=== PATIENT | male | born 1950 | race Caucasian/White ===

== ENCOUNTER → 2018-07-09 | Outpatient (CLI) | payer OTHER, MEDICARE ==
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
== END | disposition home or self-care (01) ==
LOC: RADCTMAIN 10:22
PROVIDERS: ATTEND Orthopaedic Surgery
DX: S52.692A Other fracture of lower end of left ulna, initial encounter for closed fracture (principal)

== ENCOUNTER → 2018-07-20 | Outpatient (CLI) | payer OTHER, MEDICARE ==
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
== END | disposition home or self-care (01) ==
LOC: RADMRIMAIN 07:19
PROVIDERS: ATTEND Orthopaedic Surgery
DX: S52.612D Displaced fracture of left ulna styloid process, subsequent encounter for closed fracture with routine healing (principal); S52.552D Other extraarticular fracture of lower end of left radius, subsequent encounter for closed fracture with routine healing; S52.502D Unspecified fracture of the lower end of left radius, subsequent encounter for closed fracture with routine healing; S52.602D Unspecified fracture of lower end of left ulna, subsequent encounter for closed fracture with routine healing

== ENCOUNTER → 2018-07-22 | Outpatient (CLI) | payer OTHER, MEDICARE ==
[2018-07-22 15:25] LABS: Basophils # (A) 0.1 k/uL (0-0.2); Basophils % (A) 1 %; Eosinophils # (A) 0.1 k/uL (0-0.7); Eosinophils % (A) 1 %; HCT 38.2 % (39.0-53.0); HGB 12.6 gm/dL (13.0-17.5); Lymphocytes # (A) 1.1 k/uL (1.0-4.8); Lymphocytes % (A) 20 %; MCH 31.8 pg (25.0-35.0); MCHC 32.9 g/dL (31.0-37.0); MCV 96.6 fL (80.0-100.0); Mean Platelet Volume 6.6; Monocytes # (A) 0.3 k/uL (0-1.0); Monocytes % (A) 5 %; Neutrophils # (A) 3.9 k/uL (1.3-7.7); Neutrophils % (A) 73 %; Platelet Count 255 k/uL (150-450); RBC 3.96 m/uL (4.30-5.90); RDW 13.6 % (11.5-15.5); WBC 5.4 k/uL (3.8-10.6)
[2018-07-22 19:49] LABS: Albumin 3.3 g/dL (3.80-4.90); Anion Gap 6.6 mmol/L (4.00-12.00); Calcium 8.6 mg/dL (8.7-10.3); Carbon Dioxide 25.4 mmol/L (21.6-31.8); Phosphorus 2.8 mg/dL (2.4-5.1); Potassium 4.5 mmol/L (3.5-5.5); Uric Acid 7.7 mg/dL (3.7-8.7)
[2018-07-22 20:02] LABS: Iron Saturation 25.86 (15.00-50.00)
[2018-07-22 20:12] LABS: Vitamin D 25 Hydroxy 19.8 ng/mL (30.0-100.0)
== END | disposition home or self-care (01) ==
LOC: LABWHC1 13:32
PROVIDERS: ATTEND Internal Medicine Nephrology
DX: M10.9 Gout, unspecified (principal); D63.1 Anemia in chronic kidney disease; N18.3 Chronic kidney disease, stage 3 (moderate); E21.3 Hyperparathyroidism, unspecified; R80.9 Proteinuria, unspecified
CPT/HCPCS: 36415; 80048; 82040; 82306; 82728; 83540; 83550; 83735; 83970; 84100; 84550; 85025

== ENCOUNTER → 2018-07-22 | Outpatient (CLI) | payer OTHER, MEDICARE, BC | END | disposition home or self-care (01) | LOC: LABPAT 13:55 | PROVIDERS: ATTEND Anesthesiology | DX: Z01.818 Encounter for other preprocedural examination (principal) | CPT/HCPCS: 93005 ==

== ENCOUNTER 2018-07-24 10:15 | Day surgery (SDC) | payer OTHER, MEDICARE ==
[2018-07-15 10:53] VITALS: BMI 60.3
[~2018-07-24 10:15] MED LIST: DEXAMETHASONE SOD PHOSPHATE 10 MG/ML 1 ML VIAL IV ONE; HYDROmorphone 0.5 MG/0.5 ML SYRINGE IVP PRN; MIDAZOLAM (PF) 2 MG/2 ML VIAL IV PRN; ONDANSETRON 4 MG/2 ML VIAL IVP ONE; ceFAZolin 3 GM in SODIUM CHLORIDE 0.9% 100 ML IVPB ONE
[2018-07-24] MEDS: LACTATED RINGERS 1,000 ML IV SCH ×3 (10:50→11:20)
== END 2018-07-24 11:28 | disposition home or self-care (01) ==
LOC: OR 10:15
PROVIDERS: ATTEND Orthopaedic Surgery
DX: S52.502A Unspecified fracture of the lower end of left radius, initial encounter for closed fracture (principal); Z53.09 Procedure and treatment not carried out because of other contraindication

== ENCOUNTER 2024-12-04 02:09 | Inpatient (IN) | payer MEDICARE ==
[2024-12-04] MEDS ORDERED: VANCOMYCIN IV PER PHARMACY 1 EACH MISC MISCELLANE PRN (02:29)
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
[2024-12-04] MEDS: ACETAMINOPHEN TAB 500 MG TAB PO STA (02:43)
[2024-12-04] MEDS: HYDROmorphone 1 MG/ML 1 ML SYRINGE IVP STA (02:44)
[2024-12-04] MEDS: LACTATED RINGERS 1,000 ML IV ONE (02:47)
[2024-12-04] MEDS ORDERED: ONDANSETRON 4 MG/2 ML VIAL IVP PRN (02:58)
[2024-12-04] MEDS ORDERED: NALOXONE 0.4 MG/ML 1 ML VIAL IV PRN (02:58)
[2024-12-04 03:05] LABS: Basophils # (A) 0.03 10*3/uL (0.00-0.10); Basophils % (A) 0.3 %; HCT 31.7 % (39.6-50.0); HGB 10.3 g/dL (13.0-17.0); Lymphocytes # (A) 0.58 10*3/uL (0.90-5.00); Lymphocytes % (A) 5.4 %; MCH 30.9 pg (27.0-32.0); MCHC 32.5 g/dL (32.0-37.0); MCV 95.2 fL (80.0-97.0); Mean Platelet Volume 9.5 fL (9.5-12.2); Monocytes # (A) 0.62 10*3/uL (0.20-1.00); Monocytes % (A) 5.8 %; Neutrophils # (A) 9.37 10*3/uL (1.80-7.70); Neutrophils % (A) 87.7 %; Platelet Count 124 10*3/uL (140-440); RBC 3.33 10*6/uL (4.40-5.60); RDW 15.9 % (11.5-14.5); WBC 10.69 10*3/uL (4.50-10.00)
[2024-12-04 03:22] LABS: INR 1.1 (<1.2); Partial Thromboplastin Time 24.3 sec (22.0-30.0); Prothrombin Time 12.1 sec (10.0-12.5)
[2024-12-04] MEDS: PIPERACILLIN-TAZOBACTAM 3.375 GM in SODIUM CHLORIDE 0.9% 100 ML IVPB STA (03:22)
[2024-12-04 03:41] LABS: ALT 21 U/L (4-49); AST 80 U/L (17-59); African American GFR (CKD) 52 (>60 ml/min/1.73 sqM); Albumin 2.7 g/dL (3.5-5.0); Alkaline Phosphatase 94 U/L (38-126); Anion Gap 9 mmol/L; Blood Urea Nitrogen 33 mg/dL (9-20); Calcium 7.9 mg/dL (8.4-10.2); Carbon Dioxide 18 mmol/L (22-30); Chloride 108 mmol/L (98-107); Glucose 106 mg/dL (74-99); Non-African American GFR(CKD) 45 (>60 ml/min/1.73 sqM); Phosphorus 4.1 mg/dL (2.5-4.5); Potassium 4.5 mmol/L (3.5-5.1); Sodium 135 mmol/L (137-145); Total Bilirubin 0.7 mg/dL (0.2-1.3); Total Protein 6.4 g/dL (6.3-8.2)
[2024-12-04 03:48] LABS: NT-Pro-B-Type Natriuretic Pept 3900 pg/mL
[2024-12-04] MEDS: VANCOMYCIN 2,000 MG in SODIUM CHLORIDE 0.9% 500 ML 500 ML IVPB ONE (04:25)
[2024-12-04 04:52] LABS: Creatine Kinase 3639 U/L (55-170)
[2024-12-04] MEDS: SODIUM CHLORIDE 0.9% 1,000 ML IV SCH (05:32)
--- NOTE | 2024-12-04 09:30 | XR ---
Left tibia and fibula HISTORY: Pain following trauma COMPARISON: None TECHNIQUE: 4 views of the left tibia and fibula were obtained. FINDINGS: There is a fracture through the distal left fibular diaphysis with mild varus angulation. There is an oblique nondisplaced fracture through the distal tibial metaphysis. The ankle mortise is intact. The re is ill-defined vague dystrophic soft tissue calcification distal medial lower leg and to a lesser extent the lateral lower leg. IMPRESSION: Fractures of the distal left tibia and fibula as described above. [facility], , 12/04/2024 9:28 AM
[2024-12-04] MEDS: PIPERACILLIN-TAZOBACTAM 3.375 GM in SODIUM CHLORIDE 0.9% 100 ML IVPB SCH (10:26)
[2024-12-04 10:48] LABS: Amorphous Sediment,Urine Rare /hpf; Appearance,Urine Turbid (Clear); Bilirubin,Urine Negative (Negative); Blood,Urine Moderate (Negative); Color,Urine Yellow; Glucose,Urine (UA) Negative (Negative); Ketones,Urine Negative (Negative); Leukocyte Esterase,Urine Negative (Negative); Nitrite,Urine Negative (Negative); PH, Urine 5.5 (5.0-8.0); Protein,Urine 1+ (Negative); RBC,Urine 2 /hpf (0-5); Squamous Epithelial Cell,Urine <1 /hpf (0-4); Urobilinogen,Urine <2.0 mg/dL (<2.0); WBC,Urine 5 /hpf (0-5)
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
[2024-12-04] MEDS: CEFEPIME 2 GM in SODIUM CHLORIDE 0.9% 100 ML IVPB SCH (15:25)
[2024-12-04 16:15] LABS: Influenza A Not Detected (Not Detectd); Influenza B Not Detected (Not Detectd); RSV Not Detected (Not Detectd)
[2024-12-04] MEDS: HYDROmorphone 1 MG/ML 1 ML SYRINGE IVP PRN (21:29)
[2024-12-04] MEDS: VANCOMYCIN 2,000 MG in SODIUM CHLORIDE 0.9% 500 ML 500 ML IVPB SCH (22:19)
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
[2024-12-05] MEDS ORDERED: VANCOMYCIN 2,000 MG in SODIUM CHLORIDE 0.9% 500 ML 500 ML IVPB SCH (03:00)
[2024-12-05 06:15] LABS: Basophils # (A) 0.02 10*3/uL (0.00-0.10); Basophils % (A) 0.3 %; Eosinophils # (A) 0.05 10*3/uL (0.04-0.35); Eosinophils % (A) 0.7 %; HCT 28.4 % (39.6-50.0); HGB 9.1 g/dL (13.0-17.0); Lymphocytes # (A) 0.64 10*3/uL (0.90-5.00); Lymphocytes % (A) 8.9 %; MCH 31.1 pg (27.0-32.0); MCV 96.9 fL (80.0-97.0); Mean Platelet Volume 9.8 fL (9.5-12.2); Monocytes # (A) 0.54 10*3/uL (0.20-1.00); Monocytes % (A) 7.5 %; Neutrophils # (A) 5.92 10*3/uL (1.80-7.70); Neutrophils % (A) 82.3 %; Platelet Count 127 10*3/uL (140-440); RBC 2.93 10*6/uL (4.40-5.60); RDW 15.9 % (11.5-14.5); WBC 7.19 10*3/uL (4.50-10.00)
[2024-12-05 06:44] LABS: ALT 20 U/L (4-49); AST 62 U/L (17-59); African American GFR (CKD) 48 (>60 ml/min/1.73 sqM); Albumin 2.2 g/dL (3.5-5.0); Alkaline Phosphatase 75 U/L (38-126); Anion Gap 8 mmol/L; Blood Urea Nitrogen 36 mg/dL (9-20); Carbon Dioxide 17 mmol/L (22-30); Chloride 112 mmol/L (98-107); Glucose 86 mg/dL (74-99); Magnesium 2.1 mg/dL (1.6-2.3); Non-African American GFR(CKD) 41 (>60 ml/min/1.73 sqM); Phosphorus 3.9 mg/dL (2.5-4.5); Potassium 4.1 mmol/L (3.5-5.1); Sodium 137 mmol/L (137-145); Total Bilirubin 0.5 mg/dL (0.2-1.3); Total Protein 5.5 g/dL (6.3-8.2)
--- NOTE | 2024-12-05 10:17 | P.PN ---
Subjective Progress Note Date: 12/05/24 Principal diagnosis: Left tib/fib fracture Ole is a 74-year-old male who presented to the emergency department at [facility] via transfer from [facility]. He states that he twisted his left leg and fell on this past week and laid on the floor for about 24 hours before he was taken to [facility] via EMS. He was found to have a left tib-fib fracture and also rhabdomyolysis. The patient was transferred here for further evaluation and care. There is a splint in place to the left lower leg. He states his pain is controlled right now. Orthopedics was consulted for further evaluation and care regarding his left tib-fib fracture. 12/05/2024: Ole was evaluated in ER holding. He is still waiting for a bed upstairs. He states his pain is controlled. No new complaints. Objective - Vital Signs Vital signs: Vital Signs Temp 98.1 F 12/05/24 08:00 Pulse 80 12/05/24 08:00 Resp 18 12/05/24 08:00 BP 127/80 12/05/24 08:00 Pulse Ox 97 12/05/24 08:00 FiO2 Intake & Output 12/04/24 12/05/24 12/05/24 18:59 06:59 18:59 Intake Total 1500 250 Output Total 700 500 Balance 800 -250 Intake: Intake, IV Titration 1500 Amount Cefepime 2 gm In Sodium 100 Chloride 0.9% 100 ml @ 25 mls/hr IVPB Q8HR JEANINE Rx# :[id number] Sodium Chloride 0.9% 1, 900 000 ml @ 75 mls/hr IV . [id number] JEANINE Rx#:[id number] Vancomycin 2,000 mg In 500 Sodium Chloride 0.9% 500 ml 500 ml @ 167 mls/hr IVPB Q24H JEANINE Rx#: [id number] Oral 250 Output: Urine 700 500 Other: Voiding Method Urinal # Bowel Movements 1 0 - Exam Ole is a 74-year-old male who is in no acute distress. He is alert and oriented x 3. Exam of the left lower extremity reveals a splint with drainage strikethrough on the Jean wrap mostly on the posterior aspect. He is able to wiggle his toes without difficulty. Neurological and circulatory status is intact. - Labs CBC & Chem 7: 12/05/24 05:40 12/05/24 05:40 Labs: Abnormal Lab Results - Last 24 Hours (Table) 12/04/24 12/04/24 12/05/24 Range/Units 10:27 11:00 05:40 RBC 2.93 L (4.40-5.60) 10*6/uL Hgb 9.1 L (13.0-17.0) g/dL Hct 28.4 L (39.6-50.0) % Plt Count 127 L (140-440) 10*3/uL Lymphocytes # 0.64 L (0.90-5.00) 10*3/uL Chloride (98-107) mmol/L Carbon Dioxide (22-30) mmol/L BUN (9-20) mg/dL Creatinine (0.66-1.25) mg/dL Calcium (8.4-10.2) mg/dL AST (17-59) U/L Troponin I 0.045 H* (0.000-0.034) ng/mL Total Protein (6.3-8.2) g/dL Albumin (3.5-5.0) g/dL Urine Protein 1+ H (Negative) Urine Blood Moderate H (Negative) Amorphous Sediment Rare H (None) /hpf 12/05/24 Range/Units 05:40 RBC (4.40-5.60) 10*6/uL Hgb (13.0-17.0) g/dL Hct (39.6-50.0) % Plt Count (140-440) 10*3/uL Lymphocytes # (0.90-5.00) 10*3/uL Chloride 112 H (98-107) mmol/L Carbon Dioxide 17 L (22-30) mmol/L BUN 36 H (9-20) mg/dL Creatinine 1.61 H (0.66-1.25) mg/dL Calcium 8.0 L (8.4-10.2) mg/dL AST 62 H (17-59) U/L Troponin I (0.000-0.034) ng/mL Total Protein 5.5 L (6.3-8.2) g/dL Albumin 2.2 L (3.5-5.0) g/dL Urine Protein (Negative) Urine Blood (Negative) Amorphous Sediment (None) /hpf Assessment and Plan (1) Fall Current Visit: Yes Status: Acute Code(s): W19.XXXA - UNSPECIFIED FALL, INITIAL ENCOUNTER SNOMED Code(s): 0124791 (2) Fever Current Visit: Yes Status: Acute Code(s): R50.9 - FEVER, UNSPECIFIED SNOMED Code(s): 966997667 (3) Fracture of fibula Current Visit: Yes Status: Acute Code(s): S82.409A - UNSP FRACTURE OF SHAFT OF UNSP FIBULA, INIT FOR CLOS FX SNOMED Code(s): 93734582 (4) Fracture of tibia Current Visit: Yes Status: Acute Code(s): S82.209A - UNSP FRACTURE OF SHAFT OF UNSP TIBIA, INIT FOR CLOS FX SNOMED Code(s): 50366256 (5) Rhabdomyolysis Current Visit: Yes Status: Acute Code(s): M62.82 - RHABDOMYOLYSIS SNOMED Code(s): 978157599 Plan: The clinical and x-ray findings were discussed with the patient. The case was discussed at length with Dr. Solorzano. A CT of the left lower leg/ankle reveals intra-articular involvement. We were originally planning an ORIF with a plate or a rudi but due to the patient's chronic wound in the area where the screws would need to be placed, we will hold off on surgical intervention and treat this fracture non-operatively. The patient will remain nonweightbearing to the left lower extremity. Wound care consult place. A premium equalizer boot will be ordered to aid in frequent wound care that is necessary to the lower leg, script put on chart today. Hopefully this will be obtained tomorrow and wound care KATHARINE. The plan was discussed with the patient and he is in agreement at this time. We will continue to follow the patient closely. He will likely need skilled rehab placement.
--- NOTE | 2024-12-05 15:51 | P.PN ---
Subjective Progress Note Date: 12/05/24 Principal diagnosis: Reason for follow-up is fever left leg wound and cellulitis Patient is a 74-year-old male with a past medical history significant for sleep apnea stage III kidney disease history of gastric bypass and aortic aneurysm patient apparently did have a fall on of last week and laid on the floor for more than 24 before the patient was taken to the [facility] patient was noticed to have a left tib-fib fracture and also rhabdomyolysis for the patient been transferred to [facility] on ID was consulted because of fever and left leg wound concerning for cellulitis. On today's evaluation that is 12/05/2024, Patient is afebrile patient is currently on 3 L nasal cannula oxygen and denies having any shortness of breath, the patient denies any chest pain or cough, the patient denies any nausea vomiting did not have any abdominal pain and no diarrhea pain to the left lower extremity slightly decreased. Patient white count is down to 7.19, creatinine is 1.61 influenza RSV COVID testing negative Objective - Vital Signs Vital signs: Vital Signs Temp 98.1 F 12/05/24 08:00 Pulse 80 12/05/24 08:00 Resp 18 12/05/24 08:00 BP 127/80 12/05/24 08:00 Pulse Ox 97 12/05/24 08:00 FiO2 Intake & Output 12/04/24 12/05/24 12/05/24 18:59 06:59 18:59 Intake Total 1500 250 Output Total 700 500 Balance 800 -250 Weight 136.078 kg Intake: Intake, IV Titration 1500 Amount Cefepime 2 gm In Sodium 100 Chloride 0.9% 100 ml @ 25 mls/hr IVPB Q8HR JEANINE Rx# :[id number] Sodium Chloride 0.9% 1, 900 000 ml @ 75 mls/hr IV . [id number] JEANINE Rx#:[id number] Vancomycin 2,000 mg In 500 Sodium Chloride 0.9% 500 ml 500 ml @ 167 mls/hr IVPB Q24H JEANINE Rx#: [id number] Oral 250 Output: Urine 700 500 Other: Voiding Method Urinal # Bowel Movements 1 0 - Exam GENERAL DESCRIPTION: An elderly male lying in bed in no distress RESPIRATORY SYSTEM: Unlabored breathing , decreased breath sounds at bases HEART: S1 S2 regular rate and rhythm , ABDOMEN: Soft , no tenderness EXTREMITIES: Leg is currently covered in a soft cast with drainage on the dressing - Labs CBC & Chem 7: 12/05/24 05:40 12/05/24 05:40 Labs: Abnormal Lab Results - Last 24 Hours (Table) 12/05/24 12/05/24 Range/Units 05:40 05:40 RBC 2.93 L (4.40-5.60) 10*6/uL Hgb 9.1 L (13.0-17.0) g/dL Hct 28.4 L (39.6-50.0) % Plt Count 127 L (140-440) 10*3/uL Lymphocytes # 0.64 L (0.90-5.00) 10*3/uL Chloride 112 H (98-107) mmol/L Carbon Dioxide 17 L (22-30) mmol/L BUN 36 H (9-20) mg/dL Creatinine 1.61 H (0.66-1.25) mg/dL Calcium 8.0 L (8.4-10.2) mg/dL AST 62 H (17-59) U/L Total Protein 5.5 L (6.3-8.2) g/dL Albumin 2.2 L (3.5-5.0) g/dL Assessment and Plan (1) Leg wound, left Current Visit: Yes Status: Acute Code(s): S81.802A - UNSPECIFIED OPEN WOUND, LEFT LOWER LEG, INITIAL ENCOUNTER SNOMED Code(s): 75951791357068643 (2) Fever Current Visit: Yes Status: Acute Code(s): R50.9 - FEVER, UNSPECIFIED SN OMED Code(s): 391304599 (3) Left leg cellulitis Current Visit: Yes Status: Acute Code(s): L03.116 - CELLULITIS OF LEFT LOWER LIMB SNOMED Code(s): 32305901136213977 Plan: 1patient presented to hospital with weakness did have a fall in this patient who did have left tibia and fibula fracture patient also have wound in the area of the fracture and orthopedics has postponed his surgery because of the wound and there has been concern for possible cellulitis and could be the source of the fever patient also has some URI symptoms and will need to rule out viral etiology for his fever as well 2-patient did have a negative influenza RSV and COVID PCR. 3left leg wound will be evaluated at the time of dressing changes tomorrow and deep culture will be obtained this also discussed with orthopedic ANALYTICS ARCHITECT 4for now to continue with the vancomycin and cefepime as her white count is trending down and the patient is afebrile Dictation was produced using [employer] dictation software. please excuse any grammatical, word or spelling errors. Time with Patient: Less than 30
[2024-12-05] MEDS: CEFEPIME 2 GM in SODIUM CHLORIDE 0.9% 100 ML IVPB SCH (21:36)
--- NOTE | 2024-12-06 08:55 | P.PN ---
Subjective Progress Note Date: 12/06/24 Principal diagnosis: Left tib/fib fracture Ole is a 74-year-old male who presented to the emergency department at [facility] via transfer from [facility]. He states that he twisted his left leg and fell on this past week and laid on the floor for about 24 hours before he was taken to [facility] via EMS. He was found to have a left tib-fib fracture and also rhabdomyolysis. The patient was transferred here for further evaluation and care. There is a splint in place to the left lower leg. He states his pain is controlled right now. Orthopedics was consulted for further evaluation and care regarding his left tib-fib fracture. 12/05/2024: Ole was evaluated in ER holding. He is still waiting for a bed upstairs. He states his pain is controlled. No new complaints. 12/06/2024: Ole was seen at the beside this morning. He states his pain is controlled. No new complaints. We are waiting for wound care evaluation and boot delivery today. Objective - Vital Signs Vital signs: Vital Signs Temp 98.3 F 12/06/24 07:25 Pulse 82 12/06/24 07:25 Resp 17 12/06/24 07:25 BP 107/72 12/06/24 07:25 Pulse Ox 99 12/06/24 07:25 FiO2 Intake & Output 12/05/24 12/06/24 12/06/24 18:59 06:59 18:59 Intake Total 250 1500 Output Total 1075 950 Balance -825 550 Intake: Intake, IV Titration 1500 Amount Cefepime 2 gm In Sodium 100 Chloride 0.9% 100 ml @ 25 mls/hr IVPB Q12HR JEANINE Rx #:[id number] Sodium Chloride 0.9% 1, 900 000 ml @ 75 mls/hr IV . [id number] JEANINE Rx#:[id number] Vancomycin 2,000 mg In 500 Sodium Chloride 0.9% 500 ml 500 ml @ 167 mls/hr IVPB Q24H JEANINE Rx#: [id number] Oral 250 Output: Urine 1075 950 Other: Voiding Method Urinal # Bowel Movements 0 - Exam Ole is a 74-year-old male who is in no acute distress. He is alert and oriented x 3. Exam of the left lower extremity reveals a splint with drainage strikethrough on the Jena wrap mostly on the posterior aspect. He is able to wiggle his toes without difficulty. Neurological and circulatory status is intact. - Labs CBC & Chem 7: 12/05/24 05:40 12/05/24 05:40 Assessment and Plan (1) Fall Current Visit: Yes Status: Acute Code(s): W19.XXXA - UNSPECIFIED FALL, INITIAL ENCOUNTER SNOMED Code(s): 4349507 (2) Fever Current Visit: Yes Status: Acute Code(s): R50.9 - FEVER, UNSPECIFIED SNOMED Code(s): 764733037 (3) Fracture of fibula Current Visit: Yes Status: Acute Code(s): S82.409A - UNSP FRACTURE OF SHAFT OF UNSP FIBULA, INIT FOR CLOS FX SNOMED Code(s): 28741639 (4) Fracture of tibia Current Visit: Yes Status: Acute Code(s): S82.209A - UNSP FRACTURE OF SHAFT OF UNSP TIBIA, INIT FOR CLOS FX SNOMED Code(s): 46279702 (5) Rhabdomyolysis Current Visit: Yes Status: Acute Code(s): M62.82 - RHABDOMYOLYSIS SNOMED Code(s): 539491679 Plan: The clinical and x-ray findings were discussed with the patient. The case was discussed at length with Dr. Solorzano. A CT of the left lower leg/ankle reveals intra-articular involvement. We were originally planning an ORIF with a plate or a rudi but due to the patient's chronic wound in the area where the screws would need to be placed, we will hold off on surgical intervention possibly indefinitely and treat this fracture non-operatively. The patient will remain nonweightbearing to the left lower extremity. Wound care consult place. A premium equalizer boot will be ordered to aid in frequent wound care that is necessary to the lower leg, script put on chart. Hopefully this will be obtained today and wound care KATHARINE. Wound culture ordered when the splint is removed today. The plan was discussed with the patient and he is in agreement at this time. We will continue to follow the patient closely. He will likely need skilled rehab placement.
[2024-12-06 10:23] LABS: BUN/Creat Ratio 20.41 Ratio (12.00-20.00); Blood Urea Nitrogen 34.7 mg/dL (9.0-27.0); Calcium 7.7 mg/dL (8.7-10.3); Carbon Dioxide 18.9 mmol/L (21.6-31.8); Chloride 112 mmol/L (96-109); Glucose 90 mg/dL (70-110); Potassium 4.3 mmol/L (3.5-5.5); Sodium 138 mmol/L (135-145)
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
--- NOTE | 2024-12-06 13:57 | P.PN ---
Subjective 74-year-old male who presented to the emergency department at [facility] via transfer from [facility]. He states that he twisted his left leg and fell on this past week and laid on the floor for about 24 hours before he was taken to [facility] via EMS. He was found to have a left tib-fib fracture and also rhabdomyolysis. The patient was transferred here for further evaluation and care. There is a splint in place to the left lower leg. He states his pain is controlled right now. Orthopedics was consulted for further evaluation and care regarding his left tib-fib fracture. Blood work completed in ED reveals WBC of 10.6, hemoglobin of 10.3, platelet count of 124, sodium 135, potassium 4.5, BUN/creatinine of 33/1.51 and blood glucose of 106, CK elevated at 3639 with troponin of 0.069; BNP of 3900 UA reveals moderate amount of blood Viral screen is negative 12/06 This is a pleasant 74 years old male who presents with rhabdomyolysis thought secondary to left leg wound infection. X-ray showing acute left tibia (femur fracture however orthopedic team could not operate on him because of his ongoing infection in his lower extremity therefore the recommended conservative management for now Addendum patient awake alert complaining from pain in his left leg about 5-6/10 in severity No chest pain or dyspnea. This orthopedic team recommended rehab upon discharge Troponin were elevated upon admission, therefore going to order echocardiogram and cardiology consult. Patient currently covered with IV vancomycin and cefepime vancomycin 75 mL/h. Dilaudid for pain Creatinine 1.7 which is slightly worse from yesterday. Creatinine kinase elevated 3639. Lower extremity CAT scan showing fracture of left tibia Exam as above. Active Medications Generic Name Dose Route Start Last Admin Trade Name Freq PRN Reason Stop Dose Admin Hydrocodone Bitart/Acetaminophen 1 each 12/06/24 08:26 Hydrocodone/Apap 5-325mg 1 Each Tab PO Q4HR PRN Pain Scale 1 to 5 Hydrocodone Bitart/Acetaminophen 2 each 12/06/24 08:26 Hydrocodone/Apap 5-325mg 1 Each Tab PO Q6HR PRN Pain Scale 6 to 10 Hydromorphone HCl 1 mg 12/04/24 02:28 12/06/24 12:59 Hydromorphone 1 Mg/Ml 1 Ml Syringe IVP 1 mg Q4HR PRN Administration Pain Hydroxyquinoline/Petrolatum/Lanolin 1 gm 12/06/24 11:00 Petrolat,White/Ayaan/8-Hydroxyqu 227 Gm Oint TOPICAL DAILY [facility] Protocol Sodium Chloride 1,000 mls @ 75 mls/hr 12/04/24 03:00 12/05/24 21:36 Saline 0.9% IV 75 mls/hr .[id number] [facility] Administration Vancomycin HCl 2,000 mg/ 500 mls @ 167 mls/hr 12/04/24 22:00 12/05/24 22:44 Sodium Chloride IVPB 167 mls/hr Q24H [facility] Administration Cefepime HCl 2 gm/ Sodium 100 mls @ 25 mls/hr 12/05/24 21:00 12/06/24 08:30 Chloride IVPB 25 mls/hr Q12HR [facility] Administration Protocol Miscellaneous Information 0 each 12/06/24 21:00 Vancomycin Trough Due 1 Each Misc MISCELLANE 12/06/24 21:01 DIRECTED ONE Naloxone HCl 0.2 mg 12/04/24 02:58 Naloxone 0.4 Mg/Ml 1 Ml Vial IV Q2M PRN Opioid Reversal Ondansetron HCl 4 mg 12/04/24 02:58 Ondansetron 4 Mg/2 Ml Vial IVP Q8HR PRN Nausea And Vomiting Objective - Vital Signs Vital signs: Vital Signs Temp 98.3 F 12/06/24 07:25 Pulse 82 12/06/24 07:25 Resp 17 12/06/24 07:25 BP 107/72 12/06/24 07:25 Pulse Ox 99 12/06/24 07:25 FiO2 Intake & Output 12/05/24 12/06/24 12/06/24 18:59 06:59 18:59 Intake Total 250 1500 Output Total 1075 950 Balance -825 550 Intake: Intake, IV Titration 1500 Amount Cefepime 2 gm In Sodium 100 Chloride 0.9% 100 ml @ 25 mls/hr IVPB Q12HR [facility] Rx #:[id number] Sodium Chloride 0.9% 1, 900 000 ml @ 75 mls/hr IV . [id number] [facility] Rx#:[id number] Vancomycin 2,000 mg In 500 Sodium Chloride 0.9% 500 ml 500 ml @ 167 mls/hr IVPB Q24H [facility] Rx#: [id number] Oral 250 Output: Urine 1075 950 Other: Voiding Method Urinal # Bowel Movements 0 - Exam -GENERAL: The patient is alert and oriented x3, not in any acute distress. Obese. Generally weak, lying in bed HEENT: Pupils are round and equally reacting to light. EOMI. No scleral icterus. No conjunctival pallor. Normocephalic, atraumatic. No pharyngeal erythema. No thyromegaly. CARDIOVASCULAR: S1 and S2 present. No murmurs, rubs, or gallops. PULMONARY: Chest is clear to auscultation, no wheezing , no crackles. ABDOMEN: Soft, nontender, nondistended, normoactive bowel sounds. No palpable organomegaly. MUSCULOSKELETAL: No joint swelling or deformity. -EXTREMITIES: No cyanosis, clubbing, or pedal edema. Left leg erythema and swe lling and tenderness mainly in the distal leg with dressing in place NEUROLOGICAL: Gross neurological examination did not reveal any focal deficits. SKIN: No rashes. no petechiae. - Labs CBC & Chem 7: 12/05/24 05:40 12/06/24 02:57 Labs: Abnormal Lab Results - Last 24 Hours (Table) 12/06/24 Range/Units 02:57 Chloride 112 H (96-109) mmol/L Carbon Dioxide 18.9 L (21.6-31.8) mmol/L BUN 34.7 H (9.0-27.0) mg/dL Creatinine 1.7 H (0.6-1.5) mg/dL Est GFR (CKD-EPI) 42 L (>=60) BUN/Creatinine Ratio 20.41 H (12.00-20.00) Ratio Calcium 7.7 L (8.7-10.3) mg/dL Assessment and Plan Assessment: 1. Fall with left tib-fib fracture -Orthopedic surgery on board 2. Rhabdomyolysis; CK is elevated at 3639 with BUNs/creatinine of 33/1.51 - Patient has been placed on IV fluid; will trend CK 3. Acute renal injury; BUNs/creatinine elevated at 33/1.51 - Continue with IV fluid hydration as indicated above; will monitor strict LIZETT's, daily weights, renal function electrolytes; avoid nephrotoxins and hypotension 4. Elevated troponin; initial troponin elevated at 0.069; has no complaint of chest pain or EKG change; elevated troponin likely related to poor clearance secondary to acute renal injury; we will trend 5. Cellulitis left lower extremity/left medial leg wound; patient is placed on IV cefepime and vancomycin - ID is consulted; we will monitor CBC, CRP and procalcitonin - Wound care consult in place DVT prophylaxis; CDs CODE STATUS; full code
[2024-12-06] MEDS: PETROLAT,WHITE/LAN/8-HYDROXYQU 227 GM OINT TOPICAL SCH (14:14)
[2024-12-06] MEDS: HYDROcodone/APAP 5-325MG 1 EACH TAB PO PRN (15:56)
[2024-12-06] MEDS: HEPARIN SODIUM,PORCINE 5,000 UNIT/ML 1 ML VIAL SQ SCH (16:17)
[2024-12-06] MEDS: FAMOTIDINE 20 MG/2 ML VIAL IV SCH (21:03)
[2024-12-06] MEDS: VANCOMYCIN TROUGH DUE 1 EACH MISC MISCELLANE ONE (21:12)
[2024-12-07] MEDS: HYDROcodone/APAP 5-325MG 1 EACH TAB PO PRN (00:54)
[2024-12-07 08:11] LABS: Basophils # (A) 0.04 X 10*3/uL (0.00-0.10); Basophils % (A) 0.5 %; Eosinophils # (A) 0.12 X 10*3/uL (0.04-0.35); Eosinophils % (A) 1.5 %; HCT 30.2 % (39.6-50.0); HGB 9.2 g/dL (13.0-17.0); Lymphocytes # (A) 0.78 X 10*3/uL (0.90-5.00); MCH 30.5 pg (27.0-32.0); MCHC 30.5 g/dL (32.0-37.0); Mean Platelet Volume 10.1 FL (9.5-12.2); Monocytes # (A) 0.65 X 10*3/uL (0.20-1.00); Monocytes % (A) 8.3 %; NRBC Per 100 WBC 0 X 10*3/uL (0.00-0.01); Neutrophils # (A) 6.16 X 10*3/uL (1.80-7.70); Neutrophils % (A) 79.1 %; Platelet Count 158 X 10*3/uL (140-440); RBC 3.02 X 10*6/uL (4.40-5.60); RDW 15.9 % (11.5-14.5)
[2024-12-07 08:29] LABS: BUN/Creat Ratio 21.29 Ratio (12.00-20.00); Blood Urea Nitrogen 29.8 mg/dL (9.0-27.0); Calcium 7.6 mg/dL (8.7-10.3); Chloride 113 mmol/L (96-109); Glucose 102 mg/dL (70-110); Potassium 4.6 mmol/L (3.5-5.5); Sodium 138 mmol/L (135-145)
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
[2024-12-07] MEDS: METOPROLOL TARTRATE 25 MG TAB PO SCH (10:49)
--- NOTE | 2024-12-07 11:01 | XR ---
EXAMINATION TYPE: XR chest 2V DATE OF EXAM: 12/07/2024 10:33 AM COMPARISON: Outside radiograph 11/28/2020 CLINICAL INDICATION: Male, 74 years old with history of chest evaluation, sepsis, , TECHNIQUE: AP and lateral views FINDINGS: Heart mildly enlarged. Mild interstitial densities. Prominent asymmetric elevation left hemidiaphragm . Some left basilar opacity has linear configuration suggesting strandy scarring or atelectasis. IMPRESSION: 1. Marked asymmetric elevation left hemidiaphragm, new from 2010. If concern for diaphragmatic hernia or hemidiaphragmatic paralysis, CT and/or fluoroscopic sniff test can be performed. 2. Mild cardiomegaly. Mild interstitial density. Correlate to exclude mild pulmonary vascular congest ion. 3. Strandy left basilar opacity suggesting atelectasis. [facility], , 12/07/2024 10:59 AM
--- NOTE | 2024-12-07 12:09 | P.PN ---
Subjective 74-year-old male who presented to the emergency department at [facility] via transfer from [facility]. He states that he twisted his left leg and fell on this past week and laid on the floor for about 24 hours before he was taken to [facility] via EMS. He was found to have a left tib-fib fracture and also rhabdomyolysis. The patient was transferred here for further evaluation and care. There is a splint in place to the left lower leg. He states his pain is controlled right now. Orthopedics was consulted for further evaluation and care regarding his left tib-fib fracture. Blood work completed in ED reveals WBC of 10.6, hemoglobin of 10.3, platelet count of 124, sodium 135, potassium 4.5, BUN/creatinine of 33/1.51 and blood glucose of 106, CK elevated at 3639 with troponin of 0.069; BNP of 3900 UA reveals moderate amount of blood Viral screen is negative 12/06 This is a pleasant 74 years old male who presents with rhabdomyolysis thought secondary to left leg wound infection. X-ray showing acute left tibia (femur fracture however orthopedic team could not operate on him because of his ongoing infection in his lower extremity therefore the recommended conservative management for now Addendum patient awake alert complaining from pain in his left leg about 5-6/10 in severity No chest pain or dyspnea. This orthopedic team recommended rehab upon discharge Troponin were elevated upon admission, therefore going to order echocardiogram and cardiology consult. Patient currently covered with IV vancomycin and cefepime vancomycin 75 mL/h. Dilaudid for pain Creatinine 1.7 which is slightly worse from yesterday. Creatinine kinase elevated 3639. Lower extremity CAT scan showing fracture of left tibia Exam as above. 12/07 Patient overall doing well His left leg pain and foot infection are controlled, orthopedic team decided no surgery because of the infection, currently covered with cefepime, culture growing presumptive staph, from the results pending final results No other new complaints remains on normal saline 75 mg/h. Creatinine coming down at 1.4. Creatinine kinase coming down from 3000+ down to 515. Patient will go to rehab upon discharge Cardiology team are following closely for high troponin Chest x-ray from today:showed marked asymmetric elevation of the left hemidiap hragm. Mild interstitial density suspicious pulmonary vascular congestion. Left basilar opacity suggesting atelectasis Discussed case with staff Review of systems CONSTITUTIONAL: No fever, no malaise, no fatigue. HEENT: No recent visual problems or hearing problems. Denied any sore throat. CARDIOVASCULAR: No orthopnea, PND, no palpitations, no syncope. PULMONARY: No shortness of breath, no cough, no hemoptysis. GASTROINTESTINAL: No diarrhea, no nausea, no vomiting, no abdominal pain. No rmoactive bowel sounds. NEUROLOGICAL: No headaches, no weakness, no numbness. HEMATOLOGICAL: Denies any bleeding or petechiae. Active Medications Generic Name Dose Route Start Last Admin Trade Name Freq PRN Reason Stop Dose Admin Hydrocodone Bitart/Acetaminophen 1 each 12/06/24 08:26 12/06/24 15:56 Hydrocodone/Apap 5-325mg 1 Each Tab PO 1 each Q4HR PRN Administration Pain Scale 1 to 5 Hydrocodone Bitart/Acetaminophen 2 each 12/06/24 08:26 12/07/24 00:54 Hydrocodone/Apap 5-325mg 1 Each Tab PO 2 each Q6HR PRN Administration Pain Scale 6 to 10 Famotidine 20 mg 12/06/24 21:00 12/06/24 21:03 Famotidine 20 Mg/2 Ml Vial IV 20 mg Q24H [facility] Administration Heparin Sodium (Porcine) 5,000 unit 12/06/24 16:00 12/07/24 09:14 Heparin Sodium,Porcine 5,000 Unit/Ml 1 Ml Vial SQ 5,000 unit Q8HR [facility] Administration Hydromorphone HCl 1 mg 12/04/24 02:28 12/07/24 09:13 Hydromorphone 1 Mg/Ml 1 Ml Syringe IVP 1 mg Q4HR PRN Administration Pain Hydroxyquinoline/Petrolatum/Lanolin 1 gm 12/06/24 11:00 12/07/24 10:49 Petrolat,White/Ayaan/8-Hydroxyqu 227 Gm Oint TOPICAL 1 gm DAILY [facility]ANINE Administration Protocol Sodium Chloride 1,000 mls @ 75 mls/hr 12/04/24 03:00 12/06/24 21:04 Saline 0.9% IV 75 mls/hr .[id number] [facility] Administration Vancomycin HCl 2,000 mg/ 500 mls @ 167 mls/hr 12/04/24 22:00 12/06/24 22:33 Sodium Chloride IVPB 167 mls/hr Q24H [facility] Administration Cefepime HCl 2 gm/ Sodium 100 mls @ 25 mls/hr 12/05/24 21:00 12/07/24 09:14 Chloride IVPB 25 mls/hr Q12HR [facility] Administration Protocol Metoprolol Tartrate 25 mg 12/07/24 10:00 12/07/24 10:49 Metoprolol Tartrate 25 Mg Tab PO 25 mg BID [facility]INE Administration Naloxone HCl 0.2 mg 12/04/24 02:58 Naloxone 0.4 Mg/Ml 1 Ml Vial IV Q2M PRN Opioid Reversal Ondansetron HCl 4 mg 12/04/24 02:58 Ondansetron 4 Mg/2 Ml Vial IVP Q8HR PRN Nausea And Vomiting Objective - Vital Signs Vital signs: Vital Signs Temp 98.2 F 12/07/24 08:00 Pulse 81 12/07/24 08:00 Resp 17 12/07/24 08:00 BP 159/87 12/07/24 08:00 Pulse Ox 98 12/07/24 08:00 FiO2 Intake & Output 12/06/24 12/07/24 12/07/24 18:59 06:59 18:59 Intake Total 1980 Output Total 825 1000 Balance -825 980 Intake: Intake, IV Titration 1500 Amount Cefepime 2 gm In Sodium 100 Chloride 0.9% 100 ml @ 25 mls/hr IVPB Q12HR [facility] Rx #:[id number] Sodium Chloride 0.9% 1, 900 000 ml @ 75 mls/hr IV . [id number] [facility] Rx#:[id number] Vancomycin 2,000 mg In 500 Sodium Chloride 0.9% 500 ml 500 ml @ 167 mls/hr IVPB Q24H [facility] Rx#: [id number] Oral 480 Output: Urine 825 1000 Other: Voiding Method Urinal - Exam -GENERAL: The patient is alert and oriented x3, not in any acute distress. Ob carmelita. Generally weak, lying in bed HEENT: Pupils are round and equally reacting to light. EOMI. No scleral icterus. No conjunctival pallor. Normocephalic, atraumatic. No pharyngeal erythema. No thyromegaly. CARDIOVASCULAR: S1 and S2 present. No murmurs, rubs, or gallops. PULMONARY: Chest is clear to auscultation, no wheezing , no crackles. ABDOMEN: Soft, nontender, nondistended, normoactive bowel sounds. No palpable organomegaly. MUSCULOSKELETAL: No joint swelling or deformity. -EXTREMITIES: No cyanosis, clubbing, or pedal edema. Left leg erythema and swelling and tenderness mainly in the distal leg with dressing in place NEUROLOGICAL: Gross neurological examination did not reveal any focal deficits. SKIN: No rashes. no petechiae. - Labs CBC & Chem 7: 12/07/24 03:34 12/07/24 03:34 Labs: Abnormal Lab Results - Last 24 Hours (Table) 12/07/24 12/07/24 12/07/24 Range/Units 03:34 03:34 03:34 RBC 3.02 L (4.40-5.60) X 10*6/uL Hgb 9.2 L (13.0-17.0) g/dL Hct 30.2 L (39.6-50.0) % MCV 100.0 H (80.0-97.0) FL MCHC 30.5 L (32.0-37.0) g/dL RDW 15.9 H (11.5-14.5) % Immature Gran # 0.05 H (0.00-0.04) X 10*3/uL Lymphocytes # 0.78 L (0.90-5.00) X 10*3/uL Chloride 113 H (96-109) mmol/L Carbon Dioxide 16.0 L (21.6-31.8) mmol/L BUN 29.8 H (9.0-27.0) mg/dL Est GFR (CKD-EPI) 52 L (>=60) BUN/Creatinine Ratio 21.29 H (12.00-20.00) Ratio Calcium 7.6 L (8.7-10.3) mg/dL Creatine Kinase 515 H (35-257) U/L Microbiology - Last 24 Hours (Table) 12/06/24 10:58 Gram Stain - Preliminary Leg - Left Wound Culture - Preliminary Presumptive Staph aureus Assessment and Plan Assessment: 1. Fall with left tib-fib fracture -Orthopedic surgery on board 2. Rhabdomyolysis; CK is elevated at 3639 with BUNs/creatinine of 33/1.51 - Patient has been placed on IV fluid; will trend CK 3. Acute renal injury; BUNs/creatinine elevated at 33/1.51, improvement - Continue with IV fluid hydration as indicated above; will monitor strict LIZETT's, daily weights, renal function electrolytes; avoid nephrotoxins and hypotension 4. Elevated troponin; initial troponin elevated at 0.069; has no complaint of chest pain or EKG change; elevated troponin likely related to poor clearance secondary to acute renal injury; we will trend 5. Cellulitis left lower extremity/left medial leg wound; patient is placed on IV cefepime and vancomycin - ID is consulted; we will monitor CBC, CRP and procalcitonin - Wound care consult in place DVT prophylaxis; CDs CODE STATUS; full code
--- NOTE | 2024-12-07 12:32 | P.PN ---
Subjective Progress Note Date: 12/07/24 Principal diagnosis: Left tib/fib fracture Ole is a 74-year-old male who presented to the emergency department at [facility] via transfer from [facility]. He states that he twisted his left leg and fell on this past week and laid on the floor for about 24 hours before he was taken to [facility] via EMS. He was found to have a left tib-fib fracture and also rhabdomyolysis. The patient was transferred here for further evaluation and care. There is a splint in place to the left lower leg. He states his pain is controlled right now. Orthopedics was consulted for further evaluation and care regarding his left tib-fib fracture. 12/05/2024: Ole was evaluated in ER holding. He is still waiting for a bed upstairs. He states his pain is controlled. No new complaints. 12/06/2024: Ole was seen at the beside this morning. He states his pain is controlled. No new complaints. We are waiting for wound care evaluation and boot delivery today. 12/07/2024: Ole was seen this afternoon. Wound care saw the patient yesterday and the dressing will be changed M-W-. Boot is on and patient's states it is comfortable. We are awaiting culture results. Skilled rehab at [facility] is set up for after discharge. Objective - Vital Signs Vital signs: Vital Signs Temp 98.2 F 12/07/24 08:00 Pulse 81 12/07/24 08:00 Resp 17 12/07/24 08:00 BP 159/87 12/07/24 08:00 Pulse Ox 98 12/07/24 08:00 FiO2 Intake & Output 12/06/24 12/07/24 12/07/24 18:59 06:59 18:59 Intake Total 1980 Output Total 825 1000 Balance -825 980 Intake: Intake, IV Titration 1500 Amount Cefepime 2 gm In Sodium 100 Chloride 0.9% 100 ml @ 25 mls/hr IVPB Q12HR [facility] Rx #:[id number] Sodium Chloride 0.9% 1, 900 000 ml @ 75 mls/hr IV . [id number] [facility] Rx#:[id number] Vancomycin 2,000 mg In 500 Sodium Chloride 0.9% 500 ml 500 ml @ 167 mls/hr IVPB Q24H [facility] Rx#: [id number] Oral 480 Output: Urine 825 1000 Other: Voiding Method Urinal - Exam Ole is a 74-year-old male who is in no acute distress. He is alert and oriented x 3. Exam of the left lower extremity reveals a boot in place. Dressing under the boot is intact. He is able to wiggle his toes without difficulty. Neurological and circulatory status is intact. - Labs CBC & Chem 7: 12/07/24 03:34 12/07/24 03:34 Labs: Abnormal Lab Results - Last 24 Hours (Table) 12/07/24 12/07/24 12/07/24 Range/Units 03:34 03:34 03:34 RBC 3.02 L (4.40-5.60) X 10*6/uL Hgb 9.2 L (13.0-17.0) g/dL Hct 30.2 L (39.6-50.0) % MCV 100.0 H (80.0-97.0) FL MCHC 30.5 L (32.0-37.0) g/dL RDW 15.9 H (11.5-14.5) % Immature Gran # 0.05 H (0.00-0.04) X 10*3/uL Lymphocytes # 0.78 L (0.90-5.00) X 10*3/uL Chloride 113 H (96-109) mmol/L Carbon Dioxide 16.0 L (21.6-31.8) mmol/L BUN 29.8 H (9.0-27.0) mg/dL Est GFR (CKD-EPI) 52 L (>=60) BUN/Creatinine Ratio 21.29 H (12.00-20.00) Ratio Calcium 7.6 L (8.7-10.3) mg/dL Creatine Kinase 515 H (35-257) U/L Microbiology - Last 24 Hours (Table) 12/06/24 10:58 Gram Stain - Preliminary Leg - Left Wound Culture - Preliminary Presumptive Staph aureus Assessment and Plan (1) Fall Current Visit: Yes Status: Acute Code(s): W19.XXXA - UNSPECIFIED FALL, INITIAL ENCOUNTER SNOMED Code(s): 3813639 (2) Fever Current Visit: Yes Status: Acute Code(s): R50.9 - FEVER, UNSPECIFIED SNOMED Code(s): 335984906 (3) Fracture of fibula Current Visit: Yes Status: Acute Code(s): S82.409A - UNSP FRACTURE OF SHAFT OF UNSP FIBULA, INIT FOR CLOS FX SNOMED Code(s): 50609743 (4) Fracture of tibia Current Visit: Yes Status: Acute Code(s): S82.209A - UNSP FRACTURE OF SHAFT OF UNSP TIBIA, INIT FOR CLOS FX SNOMED Code(s): 35596309 (5) Rhabdomyolysis Current Visit: Yes Status: Acute Code(s): M62.82 - RHABDOMYOLYSIS SNOMED Code(s): 013485724 Plan: The clinical findings were discussed with the patient. The case was discussed at length with Dr. Solorzano. The patient will remain nonweightbearing to the left lower extremity. Continue boot and elevation of the ankle if possible. We will continue to follow the patient closely. He is orthopedically stable for discha rge with outpatient follow up. Anticipate discharge to skilled rehab in the next 1-2 days.
--- NOTE | 2024-12-07 13:22 | P.PN ---
Subjective Progress Note Date: 12/07/24 Principal diagnosis: Reason for follow-up is fever left leg wound and cellulitis Patient is a 74-year-old male with a past medical history significant for sleep apnea stage III kidney disease history of gastric bypass and aortic aneurysm patient apparently did have a fall on of last week and laid on the floor for more than 24 before the patient was taken to the [facility] patient was noticed to have a left tib-fib fracture and also rhabdomyolysis for the patient been transferred to [facility] on ID was consulted because of fever and left leg wound concerning for cellulitis. On today's evaluation that is 12/07/2024, Patient is afebrile this morning patient denies having any chest pain shortness of breath did have occasional dry cough, the patient is currently on room air, patient denies any abdominal pain no diarrhea no nausea no vomiting, left lower extremity pain decrease in left thigh redness slightly decreased no drainage. Patient white count 7.80, creatinine is 1.4 local culture growing Staph aureus Objective - Vital Signs Vital signs: Vital Signs Temp 98.2 F 12/07/24 08:00 Pulse 81 12/07/24 08:00 Resp 17 12/07/24 08:00 BP 159/87 12/07/24 08:00 Pulse Ox 98 12/07/24 08:00 FiO2 Intake & Output 12/06/24 12/07/24 12/07/24 18:59 06:59 18:59 Intake Total 1980 Output Total 825 1000 Balance -825 980 Intake: Intake, IV Titration 1500 Amount Cefepime 2 gm In Sodium 100 Chloride 0.9% 100 ml @ 25 mls/hr IVPB Q12HR [facility] Rx #:[id number] Sodium Chloride 0.9% 1, 900 000 ml @ 75 mls/hr IV . [id number] [facility] Rx#:[id number] Vancomycin 2,000 mg In 500 Sodium Chloride 0.9% 500 ml 500 ml @ 167 mls/hr IVPB Q24H [facility] Rx#: [id number] Oral 480 Output: Urine 825 1000 Other: Voiding Method Urinal - Exam GENERAL DESCRIPTION: An elderly male lying in bed in no distress RESPIRATORY SYSTEM: Unlabored breathing , decreased breath sounds at bases HEART: S1 S2 regular rate and rhythm , ABDOMEN: Soft , no tenderness EXTREMITIES: Leg is currently covered in a soft cast with drainage on the dressing - Labs CBC & Chem 7: 12/07/24 03:34 12/07/24 03:34 Labs: Abnormal Lab Results - Last 24 Hours (Table) 12/07/24 12/07/24 12/07/24 Range/Units 03:34 03:34 03:34 RBC 3.02 L (4.40-5.60) X 10*6/uL Hgb 9.2 L (13.0-17.0) g/dL Hct 30.2 L (39.6-50.0) % MCV 100.0 H (80.0-97.0) FL MCHC 30.5 L (32.0-37.0) g/dL RDW 15.9 H (11.5-14.5) % Immature Gran # 0.05 H (0.00-0.04) X 10*3/uL Lymphocytes # 0.78 L (0.90-5.00) X 10*3/uL Chloride 113 H (96-109) mmol/L Carbon Dioxide 16.0 L (21.6-31.8) mmol/L BUN 29.8 H (9.0-27.0) mg/dL Est GFR (CKD-EPI) 52 L (>=60) BUN/Creatinine Ratio 21.29 H (12.00-20.00) Ratio Calcium 7.6 L (8.7-10.3) mg/dL Creatine Kinase 515 H (35-257) U/L Microbiology - Last 24 Hours (Table) 12/06/24 10:58 Gram Stain - Preliminary Leg - Left Wound Culture - Preliminary Presumptive Staph aureus Assessment and Plan (1) Leg wound, left Current Visit: Yes Status: Acute Code(s): S81.802A - UNSPECIFIED OPEN WOUND, LEFT LOWER LEG, INITIAL ENCOUNTER SNOMED Code(s): 26771251217393656 (2) Fever Current Visit: Yes Status: Acute Code(s): R50.9 - FEVER, UNSPECIFIED SNOMED Code(s): 760554824 (3) Left leg cellulitis Current Visit: Yes Status: Acute Code(s): L03.116 - CELLULITIS OF LEFT LOWER LIMB SNOMED Code(s): 48112508274262470 Plan: 1patient presented to hospital with weakness did have a fall in this patient who did have left tibia and fibula fracture patient also have wound in the area of the fracture and orthopedics has postponed his surgery because of the wound and there has been concern for possible cellulitis and could be the source of the fever patient also has some URI symptoms and will need to rule out viral etiology for his fever as well 2-patient did have a negative influenza RSV and COVID PCR. 3left leg culture currently growing Staph aureus sensitivities pending left thigh redness has not crossed the joanna placed yesterday 4patient will be treated with the vancomycin and cefepime while waiting for the culture to finalize to determine his discharge antibiotics Dictation was produced using [employer] dictation software. please excuse any grammatical, word or spelling errors. Time with Patient: Less than 30
--- NOTE | 2024-12-07 13:22 | P.PN ---
Subjective Progress Note Date: 12/06/24 Principal diagnosis: Reason for follow-up is fever left leg wound and cellulitis Patient is a 74-year-old male with a past medical history significant for sleep apnea stage III kidney disease history of gastric bypass and aortic aneurysm patient apparently did have a fall on of last week and laid on the floor for more than 24 before the patient was taken to the [facility] patient was noticed to have a left tib-fib fracture and also rhabdomyolysis for the patient been transferred to [facility] on ID was consulted because of fever and left leg wound concerning for cellulitis. On today's evaluation that is 12/06/2024, patient has been afebrile, patient is breathing comfortably and is currently on room air, patient denies having any chest pain and cough, patient denies nausea vomiting or diarrhea and no abdominal pain pain to the left lower extremity slightly decreased did have more redness to the left thigh area. Patient did have a creatinine 1.7 Vanco trough is 14.3 left leg cultures currently pending Objective - Vital Signs Vital signs: Vital Signs Temp 97.8 F 12/06/24 13:37 Pulse 78 12/06/24 13:37 Resp 16 12/06/24 13:37 BP 122/79 12/06/24 13:37 Pulse Ox 100 12/06/24 13:37 FiO2 Intake & Output 12/05/24 12/06/24 12/06/24 18:59 06:59 18:59 Intake Total 250 1500 Output Total 1075 950 Balance -825 550 Intake: Intake, IV Titration 1500 Amount Cefepime 2 gm In Sodium 100 Chloride 0.9% 100 ml @ 25 mls/hr IVPB Q12HR [facility] Rx #:[id number] Sodium Chloride 0.9% 1, 900 000 ml @ 75 mls/hr IV . [id number] [facility] Rx#:[id number] Vancomycin 2,000 mg In 500 Sodium Chloride 0.9% 500 ml 500 ml @ 167 mls/hr IVPB Q24H [facility] Rx#: [id number] Oral 250 Output: Urine 1075 950 Other: Voiding Method Urinal # Bowel Movements 0 - Exam GENERAL DESCRIPTION: An elderly male lying in bed in no distress RESPIRATORY SYSTEM: Unlabored breathing , decreased breath sounds at bases HEART: S1 S2 regular rate and rhythm , ABDOMEN: Soft , no tenderness EXTREMITIES: Leg is currently covered in a soft cast with drainage on the dressing - Labs CBC & Chem 7: 12/07/24 03:34 12/07/24 03:34 Labs: Abnormal Lab Results - Last 24 Hours (Table) 12/06/24 Range/Units 02:57 Chloride 112 H (96-109) mmol/L Carbon Dioxide 18.9 L (21.6-31.8) mmol/L BUN 34.7 H (9.0-27.0) mg/dL Creatinine 1.7 H (0.6-1.5) mg/dL Est GFR (CKD-EPI) 42 L (>=60) BUN/Creatinine Ratio 20.41 H (12.00-20.00) Ratio Calcium 7.7 L (8.7-10.3) mg/dL Assessment and Plan (1) Leg wound, left Current Visit: Yes Status: Acute Code(s): S81.802A - UNSPECIFIED OPEN WOUND, LEFT LOWER LEG, INITIAL ENCOUNTER SNOMED Code(s): 72639020382800545 (2) Fever Current Visit: Yes Status: Acute Code(s): R50.9 - FEVER, UNSPECIFIED SNOMED Code(s): 581903157 (3) Left leg cellulitis Current Visit: Yes Status: Acute Code(s): L03.116 - CELLULITIS OF LEFT LOWER LIMB SNOMED Code(s): 30032311811031749 Plan: 1patient presented to hospital with weakness did have a fall in this patient who did have left tibia and fibula fracture patient also have wound in the area of the fracture and orthopedics has postponed his surgery because of the wound and there has been concern for possible cellulitis and could be the source of the fever patient also has some URI symptoms and will need to rule out viral etiology for his fever as well 2-patient did have a negative influenza RSV and COVID PCR. 3left leg culture has been obtained by orthopedic [employer]IOR TELECOMM[employer]ICATION[employer] ENGINE[employer] this morning noticed to have more redness to the left thigh which has been marked 4patient will be treated with the vancomycin and cefepime while waiting for the culture to finalize Dictation was produced using [employer] software. please excuse any grammatical, word or spelling errors. Time with Patient: Less than 30
--- NOTE | 2024-12-07 14:09 | CDI ---
Documentation Clarification Form Date: 12/07/2024 01:28:07 PM From: Latesha Lan RN CCDS Phone: [phone] Admit Date: 12/04/2024 03:01:00 AM Patient Name: Ole Nava Visit Number: [id number] Discharge Date: ATTENTION: The Clinical Documentation Specialists (CDI) and [facility] Coding Staff appreciate your assistance in clarifying documentation. Please respond to the clarification below the line at the bottom and electronically sign. The CDI & [facility] Coding staff will review the response and follow-up if needed. Please note: Queries are made part of the Legal Health Record. If you have any questions, please contact the author of this message via ITS. Doctor: Humble E Sheet Rhabdomyolysis is documented 12/04 12/07, Medicine [facility] and notes. Additional clarification regarding the type of rhabdomyolysis is requested. History/Risk Factors: 74 year old presents to the ED from [facility] after a fall to the ground when he twisted his leg on the prior to admission was on the floor for about 24 hours. Medical history: Renal disease, sleep apnea CPAP/BIPAP vascular disorder Clinical Indicators: Creatinine kinase: 12/04 3639; Creatinine kinase: 12/07 515 BUN 12/04 33; 12/05 1.61; 12/06 1.7 Creatinine 12/04 1.51; 12/05 1.61; 12/06 1.7 Treatment: 12/04 Lactated Ringers 1L IV Bolus, 12/04 - 0.9NS 75cc IV Please clarify the type of rhabdomyolysis, if known: [ ] Traumatic rhabdomyolysis due to fall [ x ] Traumatic rhabdomyolysis due to prolonged immobility [ ] Other, please specify [ ] Unable to Determine (Template Last Revised: August 2020) MTDD
[2024-12-08 09:10] LABS: BUN/Creat Ratio 20.92 Ratio (12.00-20.00); Blood Urea Nitrogen 25.1 mg/dL (9.0-27.0); Calcium 7.7 mg/dL (8.7-10.3); Carbon Dioxide 16.1 mmol/L (21.6-31.8); Chloride 114 mmol/L (96-109); Creatine Kinase 287 U/L (35-257); Glucose 101 mg/dL (70-110); Potassium 4.4 mmol/L (3.5-5.5); Sodium 140 mmol/L (135-145)
--- NOTE | 2024-12-08 11:31 | P.PN ---
Subjective HISTORY OF PRESENTING ILLNESS This is a pleasant 74-year-old male past medical history significant for abdominal aortic aneurysm status post stent graft, obesity, chronic kidney disease, sleep apnea, former nicotine dependence and venous insufficiency. He previously followed in the office with Dr. Sanchez, last office visit was 2020. We have been asked to see in consultation for elevated troponin. He presented to the hospital after suffering a fall at home and was found to have left tib/fib fracture, sepsis and rhabdomyolysis. He has been seen by orthopedics and being treated medically due to his left lower extremity wound requiring IV antibiotics causing sepsis. Troponins were elevated at 0.069 and 0.045. CK was 3639. Renal function has normalized as of this morning with a creatinine of 1.4 with a mildly elevated BUN still of 29. He denies ever having had any symptoms of chest pain or shortness of breath. EKG sinus rhythm heart rate of 74 with right bundle branch block. He takes no daily home medications. There is no old records to review in terms of a stress test or an echocardiogram. 12/08/2024 Patient seen and examined resting comfortably laying flat in bed in no acute distress. Blood pressure 171/76 heart rate 75 afebrile maintaining oxygen saturation on room air. Repeat CK level has come down to 287. PHYSICAL EXAMINATION CONSTITUTIONAL: No apparent distress. HEENT: Head is normocephalic. Pupils are equal, round. Sclerae anicteric. Mucous membranes of the mouth are moist. No JVD. No carotid bruit. CHEST EXAMINATION: Lungs are clear to auscultation. No chest wall tenderness is noted on palpation or with deep breathing. HEART EXAMINATION: Regular rate and rhythm. S1, S2 heard. No murmurs, gallops or rub. ABDOMEN: Soft, nontender. EXTREMITIES: 2+ peripheral pulses, no lower extremity edema and no calf tenderness. NEUROLOGIC EXAMINATION: Patient is awake, alert and oriented x3. ASSESSMENT Rhabdomyolysis Acute kidney injury Elevated troponin of unclear significance with no symptoms of angina likely related to renal function Left tib-fib fracture Lower extremity venous stasis ulcer, infectious disease following PLAN Add a small dose of amlodipine 5 mg daily for optimal blood pressure control. Echocardiogram will be reviewed when taken. We will follow along as needed, please call with further questions or concerns. Follow-up in the office with Dr. Sanchez upon discharge. Nurse Practitioner note has been reviewed, I agree with a documented findings and plan of care. Patient was seen and examined. Objective - Vital Signs Vital signs: Vital Signs Temp 98.4 F 12/08/24 08:07 Pulse 75 12/08/24 08:07 Resp 16 12/08/24 08:07 BP 171/76 12/08/24 08:07 Pulse Ox 98 12/08/24 08:07 FiO2 Intake & Output 12/07/24 12/08/24 12/08/24 18:59 06:59 18:59 Intake Total 100 Output Total 850 700 Balance -850 -600 Intake: Oral 100 Output: Urine 850 700 Other: Voiding Method Urinal Urinal # Bowel Movements 2 1 - Labs CBC & Chem 7: 12/07/24 03:34 12/08/24 03:05 Labs: Abnormal Lab Results - Last 24 Hours (Table) 12/07/24 12/08/24 Range/Units 03:34 03:05 Chloride 114 H (96-109) mmol/L Carbon Dioxide 16.1 L (21.6-31.8) mmol/L BUN/Creatinine Ratio 20.92 H (12.00-20.00) Ratio Calcium 7.7 L (8.7-10.3) mg/dL Creatine Kinase 515 H 287 H (35-257) U/L Microbiology - Last 24 Hours (Table) 12/06/24 10:58 Gram Stain - Final Leg - Left Wound Culture - Final Staphylococcus aureus
[2024-12-08] MEDS: amLODIPine 5 MG TAB PO SCH (12:24)
[2024-12-08] MEDS: ceFAZolin 3 GM in SODIUM CHLORIDE 0.9% 100 ML IVPB SCH (16:31)
--- NOTE | 2024-12-08 18:59 | P.PN ---
Subjective 74-year-old male who presented to the emergency department at [facility] via transfer from [facility]. He states that he twisted his left leg and fell on this past week and laid on the floor for about 24 hours before he was taken to [facility] via EMS. He was found to have a left tib-fib fracture and also rhabdomyolysis. The patient was transferred here for further evaluation and care. There is a splint in place to the left lower leg. He states his pain is controlled right now. Orthopedics was consulted for further evaluation and care regarding his left tib-fib fracture. Blood work completed in ED reveals WBC of 10.6, hemoglobin of 10.3, platelet count of 124, sodium 135, potassium 4.5, BUN/creatinine of 33/1.51 and blood glucose of 106, CK elevated at 3639 with troponin of 0.069; BNP of 3900 UA reveals moderate amount of blood Viral screen is negative 12/06 This is a pleasant 74 years old male who presents with rhabdomyolysis thought secondary to left leg wound infection. X-ray showing acute left tibia (femur fracture however orthopedic team could not operate on him because of his ongoing infection in his lower extremity therefore the recommended conservative management for now Addendum patient awake alert complaining from pain in his left leg about 5-6/10 in severity No chest pain or dyspnea. This orthopedic team recommended rehab upon discharge Troponin were elevated upon admission, therefore going to order echocardiogram and cardiology consult. Patient currently covered with IV vancomycin and cefepime vancomycin 75 mL/h. Dilaudid for pain Creatinine 1.7 which is slightly worse from yesterday. Creatinine kinase elevated 3639. Lower extremity CAT scan showing fracture of left tibia Exam as above. 12/07 Patient overall doing well His left leg pain and foot infection are controlled, orthopedic team decided no surgery because of the infection, currently covered with cefepime, culture growing presumptive staph, from the results pending final results No other new complaints remains on normal saline 75 mg/h. Creatinine coming down at 1.4. Creatinine kinase coming down from 3000+ down to 515. Patient will go to rehab upon discharge Cardiology team are following closely for high troponin Chest x-ray from today:showed marked asymmetric elevation of the left hemidiap hragm. Mild interstitial density suspicious pulmonary vascular congestion. Left basilar opacity suggesting atelectasis Discussed case with staff 12/08 Patient overall is improving However patient left wound sensitivity came back positive for MSSA. Antibiotics was updated to cefazolin. Discussed with staff are going to place midline per ID team today and possible discharge patient tomorrow on IV antibiotics as per ID team recommendations. Also patient is with left upper thigh redness, reviewed note from ID team, redness does not cross the marked line. Also patient on prophylactic correct dose for subcutaneous heparin. We will order venous Doppler to rule out DVT although the suspicion is low. Creatinine improved down to 1.2. Possible discharge in 24 hours if further workup is negative and cleared by all consultants Orthopedic team evaluate the patient today, their input is appreciated, no need for surgery now because of the risk of infection. Patient is aware and is agreeable with this plan. Patient is nonweightbearing for the left lower extremities. Follow-up with orthopedic team in 1 to 2 weeks. Review of systems CONSTITUTIONAL: No fever, no malaise, no fatigue. HEENT: No recent visual problems or hearing problems. Denied any sore throat. CARDIOVASCULAR: No orthopnea, PND, no palpitations, no syncope. PULMONARY: No shortness of breath, no cough, no hemoptysis. GASTROINTESTINAL: No diarrhea, no nausea, no vomiting, no abdominal pain. Normoactive bowel sounds. NEUROLOGICAL: No headaches, no weakness, no numbness. HEMATOLOGICAL: Denies any bleeding or petechiae. Active Medications Generic Name Dose Route Start Last Admin Trade Name Freq PRN Reason Stop Dose Admin Hydrocodone Bitart/Acetaminophen 1 each 12/06/24 08:26 12/07/24 16:49 Hydrocodone/Apap 5-325mg 1 Each Tab PO 1 each Q4HR PRN Administration Pain Scale 1 to 5 Hydrocodone Bitart/Acetaminophen 2 each 12/06/24 08:26 12/08/24 08:30 Hydrocodone/Apap 5-325mg 1 Each Tab PO 2 each Q6HR PRN Administration Pain Scale 6 to 10 Amlodipine Besylate 5 mg 12/08/24 11:30 12/08/24 12:24 Amlodipine 5 Mg Tab PO 5 mg DAILY JEANINE Administration Famotidine 20 mg 12/08/24 21:00 Famotidine 20 Mg Tab PO HS JEANINE Heparin Sodium (Porcine) 5,000 unit 12/06/24 16:00 12/08/24 16:34 Heparin Sodium,Porcine 5,000 Unit/Ml 1 Ml Vial SQ 5,000 unit Q8HR JEANINE Administration Hydromorphone HCl 1 mg 12/04/24 02:28 12/08/24 12:27 Hydromorphone 1 Mg/Ml 1 Ml Syringe IVP 1 mg Q4HR PRN Administration Pain Hydroxyquinoline/Petrolatum/Lanolin 1 gm 12/06/24 11:00 12/08/24 08:35 Petrolat,White/Ayaan/8-Hydroxyqu 227 Gm Oint TOPICAL 1 gm DAILY JEANINE Administration Protocol Sodium Chloride 1,000 mls @ 75 mls/hr 12/04/24 03:00 12/08/24 16:28 Saline 0.9% IV 75 mls/hr .[id number] JEANINE Administration Cefazolin Sodium 3 gm/ Sodium 100 mls @ 200 mls/hr 12/08/24 16:00 12/08/24 16:31 Chloride IVPB 200 mls/hr Q8HR JEANINE Administration Protocol Metoprolol Tartrate 25 mg 12/07/24 10:00 12/08/24 08:30 Metoprolol Tartrate 25 Mg Tab PO 25 mg BID JEANINE Administration Naloxone HCl 0.2 mg 12/04/24 02:58 Naloxone 0.4 Mg/Ml 1 Ml Vial IV Q2M PRN Opioid Reversal Ondansetron HCl 4 mg 12/04/24 02:58 Ondansetron 4 Mg/2 Ml Vial IVP Q8HR PRN Nausea And Vomiting Objective - Vital Signs Vital signs: Vital Signs Temp 97.8 F 12/08/24 14:25 Pulse 70 12/08/24 14:25 Resp 16 12/08/24 14:25 BP 131/79 12/08/24 14:25 Pulse Ox 99 12/08/24 14:25 FiO2 Intake & Output 12/07/24 12/08/24 12/08/24 18:59 06:59 18:59 Intake Total 100 Output Total 850 700 800 Balance -850 -600 -800 Intake: Oral 100 Output: Urine 850 700 800 Other: Voiding Method Urinal Urinal # Bowel Movements 2 1 - Exam -GENERAL: The patient is alert and oriented x3, not in any acute distress. Obese. Generally weak, lying in bed HEENT: Pupils are round and equally reacting to light. EOMI. No scleral icterus. No conjunctival pallor. Normocephalic, atraumatic. No pharyngeal erythema. No thyromegaly. CARDIOVASCULAR: S1 and S2 present. No murmurs, rubs, or gallops. PULMONARY: Chest is clear to auscultation, no wheezing , no crackles. ABDOMEN: Soft, nontender, nondistended, normoactive bowel sounds. No palpable organomegaly. MUSCULOSKELETAL: No joint swelling or deformity. -EXTREMITIES: No cyanosis, clubbing, or pedal edema. Left leg erythema and swelling and tenderness mainly in the distal leg with dressing in place NEUROLOGICAL: Gross neurological examination did not reveal any focal deficits. SKIN: No rashes. no petechiae. - Labs CBC & Chem 7: 12/07/24 03:34 12/08/24 03:05 Labs: Abnormal Lab Results - Last 24 Hours (Table) 12/08/24 Range/Units 03:05 Chloride 114 H (96-109) mmol/L Carbon Dioxide 16.1 L (21.6-31.8) mmol/L BUN/Creatinine Ratio 20.92 H (12.00-20.00) Ratio Calcium 7.7 L (8.7-10.3) mg/dL Creatine Kinase 287 H (35-257) U/L Microbiology - Last 24 Hours (Table) 12/06/24 10:58 Anaerobic Culture - Preliminary Leg - Left 12/06/24 10:58 Gram Stain - Final Leg - Left Wound Culture - Final Staphylococcus aureus Assessment and Plan Assessment: 1. Fall with left tib-fib fracture -Orthopedic surgery on board 2. Rhabdomyolysis; CK is elevated at 3639 with BUNs/creatinine of 33/1.51 - Patient has been placed on IV fluid; will trend CK 3. Acute renal injury; BUNs/creatinine elevated at 33/1.51, improvement - Continue with IV fluid hydration as indicated above; will monitor strict LIZETT's, daily weights, renal function electrolytes; avoid nephrotoxins and hypotension 4. Elevated troponin; initial troponin elevated at 0.069; has no complaint of chest pain or EKG change; elevated troponin likely related to poor clearance secondary to acute renal injury; we will trend 5. Cellulitis left lower extremity/left medial leg wound; patient is placed on IV cefepime and vancomycin - ID is consulted; we will monitor CBC, CRP and procalcitonin - Wound care consult in place DVT prophylaxis; CDs CODE STATUS; full code
[2024-12-08] MEDS: FAMOTIDINE 20 MG TAB PO SCH (21:12)
--- NOTE | 2024-12-08 22:18 | US ---
EXAMINATION TYPE: US venous doppler duplex LE LT DATE OF EXAM: 12/08/2024 8:44 PM COMPARISON: NONE CLINICAL INDICATION: Male, 74 years old with history of left thigh redness; thigh redness. no hx dvt. not on thinners, Pain TECHNIQUE: The lower extremity deep venous system is examined utilizing real time linear array sonog alejandra with graded compression, color doppler sonography, and spectral doppler. SIDE PERFORMED: Left FINDINGS: VESSELS IMAGED: Common Femoral Vein Deep Femoral Vein Greater Saphenous Vein * Femoral Vein Popliteal Vein Small Saphenous Vein * Proximal Calf Veins (* superficial vessels) Limited due to large patient habitus Left Leg: Appears negative for dvt as best visualized, Color Doppler imaging shows patency of the ve ssels. Spectral waveforms are within normal limits. There is a 2.2cm complex area seen in the left gr oin with a 1.4cm cortex IMPRESSION: 1. Left lower extremity ultrasound negative for deep venous thrombosis. 2. There may be a prominent lymph node within the left inguinal region. [facility], , 12/08/2024 10:16 PM
[2024-12-09 06:14] LABS: African American GFR (CKD) 57 (>60 ml/min/1.73 sqM); Non-African American GFR(CKD) 49 (>60 ml/min/1.73 sqM)
[2024-12-09 14:03] VITALS: BMI 38.5
--- NOTE | 2024-12-09 14:04 | P.DS ---
Providers Date of admission: 12/04/24 03:01 Attending physician: Noah Trinidad Consults: 12/04/24 02:58 Consult Physician Routine Consulting Provider: Lesly Partida Consult Reason/Comments: fever Do you want consulting provider notified?: Yes Consult Physician Routine Consulting Provider: Xuan Solorzano Consult Reason/Comments: tib/fibFx Do you want consulting provider notified?: Yes 12/06/24 13:52 Consult Physician Routine Consulting Provider: Dale Sanchez Consult Reason/Comments: elevated troponin Do you want consulting provider notified?: Yes Primary care physician: Wade Barlow Hospital Course: Diagnoses: 1. Fall with left tib-fib fracture, surgical intervention given his wound infection and cellulitis of the left lower extremity 2. Rhabdomyolysis; CK is elevated at 3639 with BUNs/creatinine of 33/1.51, resolved and creatinine kinase trending down 3. Acute renal injury; improved back to baseline and cleared by ship engineer 4. Elevated troponin; evaluated by stone rubber and cleared her for discharge, echocardiogram ordered and taken ordered by cardiology team 5. Cellulitis left lower extremity/left medial leg wound; secondary to MSSA, patient will be discharged on IV cefazolin x 42 as per ID team 6. Left upper thigh mild erythema, thought secondary or as part of the infection, ultrasound is negative for DVT Hospital course: 74-year-old male who presented to the emergency department at [facility] via transfer from [facility] [place]. He states that he twisted his left leg and fell on this past week and laid on the floor for about 24 hours before he was taken to [facility] [place] via EMS. He was found to have a left tib-fib fracture and also rhabdomyolysis. The patient was transferred here for further evaluation and care. There is a splint in place to the left lower leg. He states his pain is controlled right now. Orthopedics was consulted for further evaluation and recommended conservative management of his left tib-fib fracture. No surgical intervention needed given his infected wound. Infectious is following the patient culture growing MSSA. Patient will be discharged on prolonged IV antibiotics with cefazolin placed. Patient followed by several consultants with infectious disease team, stone rubber for troponin, orthopedic team, patient for discharge Patient understand there is no surgical treatment for his leg for now and he is going to follow-up with orthopedic team as an outpatient Problems and management plan were discussed with the patient and he verbalized understanding and acceptance Patient was found stable and can be discharged home in guarded prognosis however he needs follow-up as an outpatient. Patient was instructed to follow up with PCP Dr. Barlow within one week and patient agrees Directed to follow-up with Dr. Solorzano from orthopedic team in 2 weeks and x-rays in [address] Sauceda in 2 Physical exam -Gen: patient is a AAOx3, no distress. Obese CVS: S1-S2, RRR, no murmur Lungs: B/L CTA, no wheezing Abdomen: soft, no distention, no tenderness, positive bowel sounds -Extremity: no leg edema or induration. Distal left leg wound with dressing in place with surrounding erythema including the left upper thigh, improving. Distal leg is tender from the fracture Time spent more than 35 minutes Patient Condition at Discharge: Fair Plan - Discharge Summary Discharge Rx Participant: No New Discharge Prescriptions: New HYDROcodone/APAP 5-325MG [[employer] 5] 1 - 2 each PO Q4-6H PRN #30 tab PRN Reason: Pain ceFAZolin [Kefzol] 3 gm IVP Q8HR #42 each Discharge Medication List HYDROcodone/APAP 5-325MG [[employer] 5] 1 - 2 each PO Q4-6H PRN #30 tab 12/07/24 [Rx] ceFAZolin [Kefzol] 3 gm IVP Q8HR #42 each 12/09/24 [Rx] Follow up Appointment(s)/Referral(s): Xuan Solorzano [Doctor of Osteopathic Medicine] - 2 Weeks Wade Barlow MD [Primary Care Provider] - 1-2 days Lesly Partida MD [STAFF PHYSICIAN] - 1 Week Dale Sanchez MD [STAFF PHYSICIAN] - 2 Weeks Activity/Diet/Wound Care/Special Instructions: Nonweightbearing left leg May remove boot for wound care and bathing only. heart healthy diet activity is restricted till you see your doctor Discharge Disposition: TRANSFER TO SNF/ECF
[2024-12-09 14:05] VITALS: BP 117/58; PULSE 75; RESP 19; TEMP 98.4
--- NOTE | 2024-12-09 16:51 | P.PN ---
Subjective Progress Note Date: 12/08/24 Principal diagnosis: Reason for follow-up is fever left leg wound and cellulitis Patient is a 74-year-old male with a past medical history significant for sleep apnea stage III kidney disease history of gastric bypass and aortic aneurysm patient apparently did have a fall on of last week and laid on the floor for more than 24 before the patient was taken to the [facility] patient was noticed to have a left tib-fib fracture and also rhabdomyolysis for the patient been transferred to [facility] on ID was consulted because of fever and left leg wound concerning for cellulitis. On today's evaluation that is 12/08/2024,the patient denies any fever or any chills, patient is breathing comfortably on room air, the patient denies chest pain shortness of breath and no significant cough, patient denies abdominal pain, no nausea vomiting or diarrhea. Pain to the left lower extremity has decreased in intensity. Patient did have a creatinine 1.2 no CBC obtained today culture with MSSA Objective - Vital Signs Vital signs: Vital Signs Temp 98.4 F 12/08/24 08:07 Pulse 75 12/08/24 08:07 Resp 16 12/08/24 08:07 BP 171/76 12/08/24 08:07 Pulse Ox 98 12/08/24 08:07 FiO2 Intake & Output 12/07/24 12/08/24 12/08/24 18:59 06:59 18:59 Intake Total 100 Output Total 850 700 Balance -850 -600 Intake: Oral 100 Output: Urine 850 700 Other: Voiding Method Urinal Urinal # Bowel Movements 2 1 - Exam GENERAL DESCRIPTION: An elderly male lying in bed in no distress RESPIRATORY SYSTEM: Unlabored breathing , decreased breath sounds at bases HEART: S1 S2 regular rate and rhythm , ABDOMEN: Soft , no tenderness EXTREMITIES: Leg is currently covered in a soft cast with drainage on the dressing - Labs CBC & Chem 7: 12/07/24 03:34 12/09/24 04:23 Labs: Abnormal Lab Results - Last 24 Hours (Table) 12/07/24 12/08/24 Range/Units 03:34 03:05 Chloride 114 H (96-109) mmol/L Carbon Dioxide 16.1 L (21.6-31.8) mmol/L BUN/Creatinine Ratio 20.92 H (12.00-20.00) Ratio Calcium 7.7 L (8.7-10.3) mg/dL Creatine Kinase 515 H 287 H (35-257) U/L Microbiology - Last 24 Hours (Table) 12/06/24 10:58 Gram Stain - Final Leg - Left Wound Culture - Final Staphylococcus aureus Assessment and Plan (1) Leg wound, left Current Visit: Yes Status: Acute Code(s): S81.802A - UNSPECIFIED OPEN WOUND, LEFT LOWER LEG, INITIAL ENCOUNTER SNOMED Code(s): 61130070700536977 (2) Fever Current Visit: Yes Status: Acute Code(s): R50.9 - FEVER, UNSPECIFIED SNOMED Code(s): 371963942 (3) Left leg cellulitis Current Visit: Yes Status: Acute Code(s): L03.116 - CELLULITIS OF LEFT LOWER LIMB SNOMED Code(s): 65833655134542191 Plan: 1patient presented to hospital with weakness did have a fall in this patient who did have left tibia and fibula fracture patient also have wound in the area of the fracture and orthopedics has postponed his surgery because of the wound and there has been concern for possible cellulitis and could be the source of the fever patient also has some URI symptoms and will need to rule out viral etiology for his fever as well 2-patient did have a negative influenza RSV and COVID PCR. 3left leg culture currently growing MSSA left thigh redness has decreased 4I will discontinue vancomycin and cefepime we will start patient on cefazolin as the patient is going to a jail will place a midline for short course of IV antibiotic on discharge Dictation was produced using [employer] dictation software. please excuse any grammatical, word or spelling errors. Time with Patient: Less than 30
--- NOTE | 2024-12-09 16:53 | P.PN ---
Subjective Progress Note Date: 12/09/24 Principal diagnosis: Reason for follow-up is fever left leg wound and cellulitis Patient is a 74-year-old male with a past medical history significant for sleep apnea stage III kidney disease history of gastric bypass and aortic aneurysm patient apparently did have a fall on of last week and laid on the floor for more than 24 before the patient was taken to the [facility] patient was noticed to have a left tib-fib fracture and also rhabdomyolysis for the patient been transferred to [facility] on ID was consulted because of fever and left leg wound concerning for cellulitis. On today's evaluation that is 12/09/2024,the patient remains to be afebrile, patient is on room air not requiring supplemental oxygen and denies any shortness of breath no chest pain or cough.Patient denies having any nausea or vomiting, no abdominal pain and no diarrhea, pain to the left lower extremity to decrease patient did have a local culture with MSSA anaerobe culture negative Objective - Vital Signs Vital signs: Vital Signs Temp 98.5 F 12/09/24 07:33 Pulse 80 12/09/24 07:33 Resp 16 12/09/24 07:33 BP 156/75 12/09/24 07:33 Pulse Ox 96 12/09/24 07:33 FiO2 Intake & Output 12/08/24 12/09/24 12/09/24 18:59 06:59 18:59 Intake Total 1080 Output Total 800 675 Balance -800 405 Intake: Oral 1080 Output: Urine 800 675 Other: Voiding Method Urinal Urinal Urinal - Exam GENERAL DESCRIPTION: An elderly male lying in bed in no distress RESPIRATORY SYSTEM: Unlabored breathing , decreased breath sounds at bases HEART: S1 S2 regular rate and rhythm , ABDOMEN: Soft , no tenderness EXTREMITIES: Leg is currently covered in a soft cast with drainage on the dressing - Labs CBC & Chem 7: 12/07/24 03:34 12/09/24 04:23 Labs: Abnormal Lab Results - Last 24 Hours (Table) 12/09/24 Range/Units 04:23 Creatinine 1.39 H (0.66-1.25) mg/dL Microbiology - Last 24 Hours (Table) 12/06/24 10:58 Anaerobic Culture - Preliminary Leg - Left 12/06/24 10:58 Gram Stain - Final Leg - Left Wound Culture - Final Staphylococcus aureus Assessment and Plan (1) Leg wound, left Current Visit: Yes Status: Acute Code(s): S81.802A - UNSPECIFIED OPEN WOUND, LEFT LOWER LEG, INITIAL ENCOUNTER SNOMED Code(s): 24725668577932196 (2) Fever Current Visit: Yes Status: Acute Code(s): R50.9 - FEVER, UNSPECIFIED SNOMED Code(s): 025532014 (3) Left leg cellulitis Current Visit: Yes Status: Acute Code(s): L03.116 - CELLULITIS OF LEFT LOWER LIMB SNOMED Code(s): 90464004737457937 Plan: 1patient presented to hospital with weakness did have a fall in this patient who did have left tibia and fibula fracture patient also have wound in the area of the fracture and orthopedics has postponed his surgery because of the wound and there has been concern for possible cellulitis and could be the source of the fever patient also has some URI symptoms and will need to rule out viral etiology for his fever as well 2-patient did have a negative influenza RSV and COVID PCR. 3left leg culture currently growing MSSA left thigh redness has decreased 4patient did have midline placement will continue with cefazolin for 14 days on discharge to the shelter Dictation was produced using [email or web address] dictation software. please excuse any grammatical, word or spelling errors. Time with Patient: Less than 30
--- NOTE | 2024-12-10 11:18 | CA ---
Transthoracic Echo Report Name: Ole Nava Age: 74 Gender: M : 1950 Exam Date: 12/09/2024 08:03 Exam Location: [facility] Ht (in): 73 Wt (lb): 300 Ordering Physician: Humble Blackmon MD Attending/Referring Phys: [id number], Neymar Winch Runner Joy Velasquez, DAVID Procedure CPT: Indications: Chest Pain Cardiac Hx: Dextrocardia Technical Quality: Very technically difficult study, Poor, No apical images Contrast 1: Definity Total Dose (mL): 2 Contrast 2: Total Dose (mL): MEASUREMENTS (Male / Female) Normal Values 2D ECHO LV Diastolic Diameter PLAX 4.8 cm 4.2 - 5.9 / 3.9 - 5.3 cm LV Systolic Diameter PLAX 2.6 cm IVS Diastolic Thickness 1.3 cm 0.6 - 1.0 / 0.6 - 0.9 cm LVPW Diastolic Thickness 1.7 cm 0.6 - 1.0 / 0.6 - 0.9 cm LV Relative Wall Thickness 0.6 RV Internal Dim ED PLAX 2.9 cm LA Systolic Diameter LX 4.3 cm 3.0 - 4.0 / 2.7 - 3.8 cm M-MODE Aortic Root Diameter MM 3.8 cm LA Systolic Diameter MM 3.7 cm LA Ao Ratio MM 1.0 AV Cusp Separation MM 2.3 cm DOPPLER AV Peak Velocity 144.1 cm/s AV Peak Gradient 8.3 mmHg FINDINGS Left Ventricle Left ventricle not well visualized. Mildly increased septal wall thickness. Right Ventricle Right ventricle not well visualized. Right Atrium Right atrium not well visualized. Left Atrium Mildly increased left atrial diameter. Mitral Valve Mitral valve not well visualized. Mitral valve thickened. Aortic Valve Trileaflet aortic valve. No aortic valve stenosis or regurgitation. Tricuspid Valve Tricuspid valve not well visualized. Pulmonic Valve Pulmonic valve not well visualized. Pericardium No pericardial or pleural effusion. Echo free space anterior to the right ventricle likely represents a fat pad. Aorta Mild aortic dilatation at the level of the sinuses of valsalva (root), 3.8cm. CONCLUSIONS Technically difficult study poor accosting window Images are not interpretable to make any reliable conclusion Consider repeating TTE/DANYA if clinically indicated Previewed by: Dr Mango Chakraborty (Electronically Signed) Final Date: 10 December 2024 11:17
== END 2024-12-09 18:19 | DRG 563 ==
LOC: EC 02:09 → 4SSUR 03:01 → 3SCARD 04:33 → 4SSUR 12-05 10:05
PROVIDERS: ADMIT Hospitalist; ATTEND Hospitalist
PROC: 05HA33Z Insertion of Infusion Device into Left Brachial Vein, Percutaneous Approach (ICD-10-PCS; principal; 2024-12-08 15:00)
DX: S82.202A Unspecified fracture of shaft of left tibia, initial encounter for closed fracture (principal); I87.332 Chronic venous hypertension (idiopathic) with ulcer and inflammation of left lower extremity; L03.116 Cellulitis of left lower limb; I83.028 Varicose veins of left lower extremity with ulcer other part of lower leg; L97.818 Non-pressure chronic ulcer of other part of right lower leg with other specified severity; S82.402A Unspecified fracture of shaft of left fibula, initial encounter for closed fracture; N18.30 Chronic kidney disease, stage 3 unspecified; E66.9 Obesity, unspecified; I12.9 Hypertensive chronic kidney disease with stage 1 through stage 4 chronic kidney disease, or unspecified chronic kidney disease; I73.9 Peripheral vascular disease, unspecified; N17.9 Acute kidney failure, unspecified; B95.61 Methicillin susceptible Staphylococcus aureus infection as the cause of diseases classified elsewhere; I87.321 Chronic venous hypertension (idiopathic) with inflammation of right lower extremity; Z11.52 Encounter for screening for COVID-19; T79.6XXA Traumatic ischemia of muscle, initial encounter; I45.10 Unspecified right bundle-branch block; W19.XXXA Unspecified fall, initial encounter; Y92.009 Unspecified place in unspecified non-institutional (private) residence as the place of occurrence of the external cause; Z87.891 Personal history of nicotine dependence; Z98.84 Bariatric surgery status
CPT/HCPCS: 36410; 36415; 71046; 76937; 80048; 80053; 80202; 81001; 82550; 82565; 83605; 83735; 83880; 84100; 84484; 85025; 85610; 85730; 87070; 87075; 87077; 87186; 87205; 87636; 93005; 93306; 96361; 96365; 96366; 96367; 96368; 96375; 96376; 99285